=== PATIENT | female | born 1960 | race Two or more races ===

== ENCOUNTER 2021-02-23 15:25 | Emergency (ER) | payer OTHER ==
[~2021-02-23] VITALS: Ht 170.2 cm; Wt 81.6 kg
[2021-02-23 15:35] VITALS: BP 134/60
== END 2021-02-23 16:12 | disposition left against medical advice (07) ==
LOC: ER 15:25 → EDBD 15:25 → ER 16:12
DX: S76.912A Strain of unspecified muscles, fascia and tendons at thigh level, left thigh, initial encounter (principal); I10 Essential (primary) hypertension; Z88.0 Allergy status to penicillin; Z53.29 Procedure and treatment not carried out because of patient's decision for other reasons; W19.XXXA Unspecified fall, initial encounter; Y93.89 Activity, other specified; Y92.89 Other specified places as the place of occurrence of the external cause; Y99.8 Other external cause status